=== PATIENT | female | born 1945 | race Caucasian/White ===

== ENCOUNTER 2018-06-09 10:24 | Emergency (ER) | payer MEDICARE, BC, OTHER ==
--- NOTE | 2018-06-09 10:27 | ED ---
Adult Trauma - HPI Summary HPI Summary: A 72 y/o female brought in by [facility] ambulance presents to [facility] with a chief complaint of a fall while walking at [place] earlier today. Per EMS, her memory was worse, but is now getting better and witnesses described her fall as more of a syncopal episode since she reportedly didn't trip on anything. She also c/ o headache, N/V, right eyelid laceration and periorbital ecchymosis and a nosebleed. At triage she rated her pain as a 9/10 in severity. In the ED she cannot remember what she did yesterday. She denies blurred vision, CP or SOB. SHx mastectomy. - History of Current Complaint Stated Complaint: FALL PER EMS Hx Obtained From: Patient, EMS Mechanism of Injury: Fall Loss of Consciousness: unsure Onset/Duration: Started Minutes Ago, Still Present - confusion Onset of Pain: Immediate, Post Accident, Prior to Arrival Onset Severity: Severe Current Severity: Severe Pain Intensity: 9 Pain Scale Used: 0-10 Numeric Location: Head Aggravating Factor(s): Nothing Alleviating Factor(s): Nothing Associated Signs & Symptoms: Positive: Nausea/Vomiting, Memory Loss. Negative: SOB, Chest Pain, Fever - Allergy/Home Medications Allergies/Adverse Reactions: Allergies Allergy/AdvReac Type Severity Reaction Status Date / Time MS No Known Drug Allergy Allergy Unknown See Comment Verified 01/05/16 12:57 [No Known Drug Allergy] ENVIRONMENTAL Allergy NASAL Uncoded 01/05/16 12:57 CONGESTION, BREATHING DIFFICULTY Home Medications: Home Medications Cholecalciferol CAP/TAB(NF) [Vitamin D3 CAP/TAB (NF)] 5,000 unit PO DAILY [History Confirmed 06/09/18] Diazepam TAB(*) [Valium TAB(*)] 5 mg PO DAILY PRN 06/09/18 [History Confirmed ] Ibuprofen [Motrin Ib] 200 mg PO BID PRN 06/09/18 [History Confirmed 06/09/18] Lactobacillus Acidophilus [Probiotic Acidophilus] 1 tab PO DAILY 06/09/18 [ History Confirmed 06/09/18] Levothyroxine TAB* [Synthroid TAB*] 88 mcg PO QAM 06/09/18 [History Confirmed ] Loperamide CAP* [Imodium CAP*] 2 mg PO DAILY PRN 06/09/18 [History Confirmed 02/15] Meclizine TAB* [Antivert 12.5 TAB*] 12.5 mg PO TID PRN 06/09/18 [History Confirmed 06/09/18] Ondansetron ODT TAB* [Zofran 4 MG Odt TAB*] 4 mg PO Q6H PRN 06/09/18 [History Confirmed 06/09/18] Vitamin B Complex CAP* [B Complex CAP*] 1 cap PO DAILY 06/09/18 [History Confirmed 06/09/18] Zolmitriptan (NF) [Zomeg (NF)] 5 mg SL .SEE INSTRUCTIONS PRN 06/09/18 [History Confirmed 06/09/18] diPHENhydraMINE PO* [Benadryl PO 25 MG TAB*] 25 mg PO DAILY PRN 06/09/18 [ History Confirmed 06/09/18] PMH/Surg Hx/FS Hx/Imm Hx Endocrine/Hematology History: Reports: Hx Thyroid Disease - HYPOTHYROID Denies: Hx Diabetes Cardiovascular History: Denies: Hx Hypertension, Hx Pacemaker/ICD, Other Cardiovascular Problems/ Disorders Respiratory History: Denies: Other Respiratory Problems/Disorders History: Denies: Hx Renal Disease Musculoskeletal History: Denies: Hx Osteoporosis, Other Musculoskeletal History Sensory History: Reports: Hx Contacts or Glasses - READING Denies: Hx Hearing Aid Opthamlomology History: Reports: Hx Contacts or Glasses - READING Neurological History: Reports: Hx Headaches - SEVERAL TIMES A MONTH- MOSTLY WEATHER RELATED, Hx Migraine - SEVERAL TIMES A MONTH-ROUTINE AND PRN MEDICATION FOR Denies: Other Neuro Impairments/Disorders Psychiatric History: Denies: Hx Panic Disorder - Cancer History Cancer Type, Location and Year: LEFT BREAST Hx Chemotherapy: No Hx Radiation Therapy: No - Surgical History Surgery Procedure, Year, and Place: [facility]ly [facility], [place], [facility] [place] [facility] [place]. LEFT BREAST MASTECTOMY 2013 Hx Anesthesia Reactions: No - Family History Known Family History: Negative: Blood Disorder - Social History Alcohol Use: Occasionally Substance Use Type: Reports: None Smoking Status (MU): Never Smoked Tobacco Review of Systems Negative: Fever Eyes: Other - laceration right eyelid, right periorbital ecchymosis Negative: Blurred Vision Positive: Epistaxis Negative: Chest Pain Negative: Shortness Of Breath Positive: Vomiting, Nausea Positive: Headache, Syncope - per witnesses All Other Systems Reviewed And Are Negative: Yes Physical Exam - Summary Physical Exam Summary: Constitutional: Well-developed, Well-nourished, Alert. (-) Distressed Skin: Warm, Dry HENT: Superficial laceration right upper eyelid, periorbital ecchymosis, tenderness right maxilla and right side of nose, forehead is normal, no septal hematoma, dry blood in right nare, mouth and lower face are normal Eyes: Conjunctiva normal bilaterally, EOMI. Neck: Musculoskeletal ROM normal neck. (-) JVD, (-) Stridor, (-) Tracheal deviation Cardio: Rhythm regular, rate normal, Heart sounds normal; Intact distal pulses; The pedal pulses are 2+ and symmetric. Radial pulses are 2+ and symmetric. (-) Murmur Pulmonary/Chest wall: Effort normal. (-) Respiratory distress, (-) Wheezes, (-) Rales Abd: Soft, (-) tenderness, (-) Distension, (-) Guarding, (-) Rebound Musculoskeletal: (-) Edema, No TTP c-spine or spine. Lymph: (-) Cervical adenopathy Neuro: Normal strenght sensation bilaterally, cranial nerves II-XII intact, alert and oriented to person, place and time but not to event. Psych: Mood and affect Normal GCS: 14 Triage Information Reviewed: Yes Vital Signs Reviewed: Yes Diagnostics - Laboratory Result Diagrams: 06/09/18 11:06 06/09/18 11:06 Lab Statement: Any lab studies that have been ordered have been reviewed, and results considered in the medical decision making process. - Radiology CXR Radiology Interpretation Completed By: Radiologist Summary of Radiographic Findings: NO ACTIVE CARDIOPULMONARY DISEASE. ED physician has reviewed this imaging report. - CT Maxillofacial CT Interpretation Completed By: Radiologist Summary of CT Findings: Infiltrative edema/hematoma along the RIGHT face from the level of the mandible. inferiorly through the malar eminence and preseptal orbital and superolateral orbital. margin superiorly. Negative for hematoma at the post septal RIGHT orbit. Mildly transverse impacted fractures involving the anterior, lateral, and posterior. aragon of the RIGHT maxillary sinus as well as the floor and lateral margin of the RIGHT. orbit. Negative for downward herniation of the RIGHT orbital contents. Segmental fracture. involving the medial margin of the RIGHT orbit with extension to the RIGHT nasal bones. with mild medial displacement. Nondisplaced fracture at the mid RIGHT zygomatic arch. ED physician has reviewed this imaging report. cervical spine CT Interpretation Completed By: Radiologist Summary of CT Findings: No CT evidence for traumatic cervical spine injury. ED physician has reviewed this imaging report. Brain CT Interpretation Completed By: Radiologist Summary of CT Findings: No CT evidence for traumatic brain injury or acute intracranial process. Mild involutional change. Refer to maxillofacial CT of the same date for description of facial fractures. including involvement of the aragon of the RIGHT maxillary sinus and RIGHT orbit. ED physician has reviewed this imaging report. - EKG 10:59 Cardiac Rate: NL - 74 bpm EKG Rhythm: Sinus Rhythm Summary of EKG Findings: Normal sinus rhythm at 74bpm, normal MI, normal QRS, normal QTc, normal axis, normal ST, normal T-waves, normal EKG. Re-Evaluation - Re-Evaluation First Eval Re-Evaluation Time: 11:52 Change: Unchanged Comment: Vision reassessed, EOMI, at first she reported no blurry vision but now her right eye vision is hazy, Pt still has headache and nausea. Adult Trauma Course/Dx - Course Course Of Treatment: A 72 y/o female brought in by [facility] ambulance presents to [facility] with a chief complaint of a fall while walking at [place] earlier today. Per EMS, her memory was worse, but is now getting better and witnesses described her fall as more of a syncopal episode since she reportedly didn't trip on anything. The physical exam revealed superficial laceration right upper eyelid, Periorbital ecchymosis and tenderness right maxilla and right side of nose, Forehead is normal, no septal hematoma, dry blood in right nare, Mouth and lower face normal, Eye conjunctiva normal bilaterally, EOMI, No TTP from neck down, no c-spine or spine tenderness, Normal strength and sensation bilaterally, Cranial nerves II-XII intact, Alert and oriented to person and place, time but not to event. GCS of 14.EKG at 10:59 showed Normal sinus rhythm at 74bpm, normal MI, normal QRS, normal QTc, normal axis, normal ST, normal T- waves, normal EKG. Maxillofacial CT impression: Infiltrative edema/hematoma along the RIGHT face from the level of the mandible. inferiorly through the malar eminence and preseptal orbital and superolateral orbital. margin superiorly. Negative for hematoma at the post septal RIGHT orbit. Mildly transverse impacted fractures involving the anterior, lateral, and posterior. aragon of the RIGHT maxillary sinus as well as the floor and lateral margin of the RIGHT. orbit. Negative for downward herniation of the RIGHT orbital contents. Segmental fracture. involving the medial margin of the RIGHT orbit with extension to the RIGHT nasal bones. with mild medial displacement. Nondisplaced fracture at the mid RIGHT zygomatic arch. CXR impression: NO ACTIVE CARDIOPULMONARY DISEASE. Cervical spine CT impression: No CT evidence for traumatic cervical spine injury. Brain CT impression: No CT evidence for traumatic brain injury or acute intracranial process. Mild involutional change. Refer to maxillofacial CT of the same date for description of facial fractures. including involvement of the aragon of the RIGHT maxillary sinus and RIGHT orbit. In the ED course the patient was given 4mg Zofran IV and sodium chloride IV. Bloodwork and chemistries obtained and are WNL. Upon re-eval the patient reported that she still had a headache and nausea along with new right eye vision haziness. The patient was given Reglan IV and Morphine IV. Discussed case with Dr. Wilkerson at [facility], who accepted the patient for transfer. - Diagnoses Provider Diagnoses: Syncope, Orbital fracture, Decreased visual acuity, Facial bones, open fracture During the Visit The Following Alert/Code Occurred: Trauma - Physician Notifications Instructed by Provider To: Transfer - transfer to [facility] for Ophthalmology eval. - Critical Care Time Critical Care Time: 30-74 min Discharge - Sign-Out/Discharge Documenting (check all that apply): Patient Departure - transfer Patient Received Moderate/Deep Sedation with Procedure: No - Discharge Plan Condition: Fair Disposition: TRANS HIGHER LVL OF CARE FAC Referrals: Erica Duran MD [Primary Care Provider] - - Billing Disposition and Condition Condition: FAIR Disposition: Trans Higher Lvl of Care Fac - Attestation Statements Document Initiated by Scribe: Yes Documenting Scribe: Ciro Toro Provider For Whom Gabriela is Documenting (Include Credential): Zoya Clevealnd MD Scribe Attestation: Ciro Salter scribed for Zoya Park MD on 06/09/18 at 1252. Scribe Documentation Reviewed: Yes Provider Attestation: The documentation as recorded by the scribe, Ciro DesRochers accurately reflects the service I personally performed and the decisions made by me, Zoya Park MD Status of Scribe Document: Viewed Consult Consult: At 12:21 - Discussed case with Dr. Wilkerson at [facility], who accepted the patient for transfer.
[2018-06-09] MEDS ORDERED: NS 0.9% 1000 ML** 1,000 ML IV ONE (10:29)
[2018-06-09] MEDS ORDERED: Ondansetron INJ* 2 MG/ML VIAL IV ONE (10:29)
[2018-06-09 11:03] VITALS: BP 151/87
[2018-06-09 11:16] LABS: ABS Basophils 0.1 10^3/ul (0-0.2); ABS Eosinophils 0.4 10^3/ul (0-0.6); ABS Lymphocytes 1.6 10^3/ul (1.0-4.8); ABS Monocytes 0.6 10^3/ul (0-0.8); ABS Neutrophils 9.3 10^3/ul (1.5-7.7); ABS Nucleated RBC 0 10^3/ul; Eosinophil % 3.4 %; Hematocrit 42 % (33-41); Hemoglobin 13.8 g/dL (12.0-16.0); Lymphocyte % 13.6 %; Mean Corpuscular HGB Conc 33 g/dL (31-36); Mean Corpuscular Hemoglobin 30 pg (27-31); Mean Corpuscular Volume 90 fL (80-97); Mean Platelet Volume 9.6 fL (7.4-10.4); Nucleated Red Blood Cells % 0; Platelet Count 259 10^3/uL (150-450); Red Blood Count 4.66 10^6 /uL (3.70-4.87); Red Cell Distribution Width 14 % (10.5-15); White Blood Count 12.1 10^3/uL (3.5-10.8)
[2018-06-09 11:28] LABS: INR 0.82 (0.77-1.02)
[2018-06-09 11:36] LABS: ALT 36 U/L (7-52); AST 34 U/L (13-39); Albumin/Globulin Ratio 1.3 (1-3); Alkaline Phosphatase 62 U/L (34-104); Amylase 46 U/L (29-103); Anion Gap 5 mmol/L (2-11); BUN/Creatinine Ratio 19.1 (8-20); Blood Urea Nitrogen 17 mg/dL (6-24); CO2 Carbon Dioxide 28 mmol/L (22-32); Calcium 9.3 mg/dL (8.6-10.3); Chloride 104 mmol/L (101-111); Creatine Kinase 76 U/L (10-223); EGFR African American 75.4 (>60); EGFR Non-African American 62.3 (>60); Globulin 3.1 g/dL (2-4); Glucose 111 mg/dL (70-100); Potassium 4.1 mmol/L (3.5-5.0); Sodium 137 mmol/L (135-145); Total Protein 7.1 g/dL (6.4-8.9)
[2018-06-09 11:37] LABS: Troponin I 0.01 ng/mL (<0.04)
[2018-06-09 11:41] LABS: Alcohol < 10 mg/dL (<10)
[2018-06-09] MEDS ORDERED: Metoclopramide IV* 5 MG/ML 2 ML VIAL IV ONE (11:57)
[2018-06-09] MEDS ORDERED: Morphine 4 MG/ML VIAL (1 ml) 4 MG/ML VIAL IV PRN (11:57)
[2018-06-09] MEDS ORDERED: Tetan/Diph/Pertus SYR(Tdap)* 0.5 ML SYR(BOOSTRIX) use SYR IM ONE (12:00)
[2018-06-09] MEDS ORDERED: ceFAZolin 1 GM ADVAN(*) 1 GM in NS 0.9% 50 ML* 50 ML IVPB ONE (12:01)
[2018-06-09] MEDS ORDERED: NS 0.9% 1000 ML** 1,000 ML IV SCH (13:00)
== END 2018-06-09 13:24 | disposition short-term general hospital (02) ==
LOC: ED 10:24
DX: S02.31XA Fracture of orbital floor, right side, initial encounter for closed fracture (principal); S02.40CA Maxillary fracture, right side, initial encounter for closed fracture; S02.40EA Zygomatic fracture, right side, initial encounter for closed fracture; S02.2XXB Fracture of nasal bones, initial encounter for open fracture; Y93.01 Activity, walking, marching and hiking; R94.31 Abnormal electrocardiogram [ECG] [EKG]; R55 Syncope and collapse; E03.9 Hypothyroidism, unspecified; Z79.890 Hormone replacement therapy
CPT/HCPCS: 36415; 70450; 70486; 71045; 72125; 80053; 80320; 82150; 82550; 83605; 83690; 84484; 85025; 85610; 86850; 86900; 86901; 90471; 90715; 93005; 96361; 96365; 96375; 99284; 99291; G0480; J0690; J2270; J2405; J2765

== ENCOUNTER 2018-11-08 07:57 | Day surgery (SDC) | payer MEDICARE, BC ==
[2018-11-08] MEDS ORDERED: Midazolam* 1 MG/ML 2 ML VIAL (2 MG) ONE ×2 (09:16→10:10)
--- NOTE | 2018-11-08 11:27 | OP ---
OPERATIVE NOTE: DATE OF OPERATION: 11/08/18 DATE OF : 45 SURGEON: Clive Cuba M.D. PREOPERATIVE DIAGNOSIS: Cataract, left eye. POSTOPERATIVE DIAGNOSIS: Cataract, left eye. OPERATIVE PROCEDURE: Extracapsular cataract extraction with IOL implant left eye. PROCEDURE: The patient was brought to the operating room after being given 1/2% Alcaine with epineph rine drops in the preoperative area. The eye was prepped and draped in the usual sterile fashion. S terile drape and eyelid speculum were placed. Again, topical 1/2% Alcaine with epinephrine was given . A paracentesis incision was made at the 3 o'clock position with the No.75 blade. Clear cornea inc ision 2.2 x 2.2-mm was created at the 6 o'clock position starting at the anterior limbus using the 2. 2-mm keratome. The anterior chamber was irrigated with 0.4 mL of 1% non-preservative intracameral li docaine and filled with DisCoVisc. A capsulorrhexis was completed using the cystotome and the Utrata forceps. Hydrodissection was performed with balanced salt solution. The lens nucleus was removed wi th the Phacoemulsification handpiece without incident. Cortex was removed with the irrigation-aspira tion handpiece. The capsular bag was re-inflated using DisCoVisc and an SN60WF 20.5 implant was inse rted with the shooter. The irrigation-aspiration handpiece was used to remove all residual DisCoVisc . The eye was refilled with balanced salt solution and the wound checked and found to be watertight. Topical Maxitrol drops were given. [id number]/[facility] #: [id number]
[2018-11-08 11:45] VITALS: BP 97/43
[2018-11-08] MEDS ORDERED: Proparacaine 0.5% OPHTH.SOL* 15 ML BTL ONE (12:20)
[2018-11-08] MEDS ORDERED: Lidocaine 2% w/ EPI 1:200,000* 20 ML SDV VIAL ONE (12:20)
[2018-11-08] MEDS ORDERED: Lidocaine 1% MPF ** 5 ML VIAL ONE (12:20)
[2018-11-08] MEDS ORDERED: Neomycin/Polymy/Dex OPTH.SUSP* MAXITROL 0.1% 5 ML ONE (12:20)
[2018-11-08] MEDS ORDERED: Povidone Iodine 5% OPTH* 30 ML BTL ONE (12:20)
[2018-11-08] MEDS ORDERED: Cyclopentolate 1% OPTH.SOL* 2 ML BTL ONE (12:20)
[2018-11-08] MEDS ORDERED: Ketorolac 0.5% OPHTH (NF) 0.5 % 5 ML BTL ONE (12:20)
[2018-11-08] MEDS ORDERED: acetaZOLAMIDE TAB* 250 MG ONE (12:20)
[2018-11-08] MEDS ORDERED: Phenylephrine OPHTH SOL 2.5%* 2 ML ONE (12:20)
== END 2018-11-08 10:42 | disposition home or self-care (01) ==
LOC: OREAST 07:57
PROVIDERS: ATTEND Specialist
DX: H25.812 Combined forms of age-related cataract, left eye (principal); I10 Essential (primary) hypertension; E03.9 Hypothyroidism, unspecified; M19.039 Primary osteoarthritis, unspecified wrist; G43.009 Migraine without aura, not intractable, without status migrainosus; H81.10 Benign paroxysmal vertigo, unspecified ear; Z85.3 Personal history of malignant neoplasm of breast
CPT/HCPCS: A9270-GY; J2250; V2632

== ENCOUNTER 2018-11-22 06:32 | Day surgery (SDC) | payer MEDICARE, BC ==
[~2018-11-22 06:32] MED LIST: Acetaminophen TAB* 325 MG PO PRN; Buffered Lidocaine 1% SYRIN* 1 ML/SYRINGE INTRADERM ONE
[2018-11-22] MEDS ORDERED: Midazolam* 1 MG/ML 5 ML VIAL (5 MG) ONE (07:14)
[2018-11-22] MEDS ORDERED: fentaNYL* 50 MCG/ML 2 ML VIAL (100 MCG VIAL) ONE (07:14)
--- NOTE | 2018-11-22 08:27 | OP ---
DATE OF OPERATION: 11/22/18 LOCATED WITHIN [facility] DATE OF : 45 SURGEON: Clive Cuba M.D. PREOPERATIVE DIAGNOSIS: Cataract, right eye. POSTOPERATIVE DIAGNOSIS: Cataract, right eye. OPERATIVE PROCEDURE: Extracapsular cataract extraction with intraocular lens, right eye. DESCRIPTION OFPROCEDURE: The patient was brought to the operating room after being given 1/2% Alcaine with epinephrine drops in the preoperative area. The eye was prepped and draped in the usual sterile fashion. Sterile drape and eyelid speculum were placed. Again, topical 1/2% Alcaine with epinephrine was given. A paracentesis incision was made at the 9 o'clock position with the No.75 blade. Clear cornea incision 2.2 x 2.2-mm was created at the 12 o'clock position starting at the anterior limbus using the 2.2-mm keratome. The anterior chamber was irrigated with 0.4 mL of 1% non-preservative intracameral lidocaine and filled with DisCoVisc. A capsulorrhexis was completed using the cystotome and the Utrata forceps. Hydrodissection was performed with balanced salt solution. The lens nucleus was removed with the Phacoemulsification handpiece without incident. Cortex was removed with the irrigation-aspiration handpiece. The capsular bag was re-inflated using DisCoVisc and an SN60WF 19.5 implant was inserted with the shooter. The irrigation-aspiration handpiece was used to remove all residual DisCoVisc. The eye was refilled with balanced salt solution and the wound checked and found to be watertight. Topical Maxitrol drops were given. [id number]/[facility] #: [id number] MTDD
[2018-11-22 08:33] VITALS: BP 110/50
[2018-11-22] MEDS ORDERED: Proparacaine 0.5% OPHTH.SOL* 15 ML BTL ONE (12:55)
[2018-11-22] MEDS ORDERED: Ketorolac 0.5% OPHTH (NF) 0.5 % 5 ML BTL ONE (12:55)
[2018-11-22] MEDS ORDERED: Povidone Iodine 5% OPTH* 30 ML BTL ONE (12:55)
[2018-11-22] MEDS ORDERED: Lidocaine 2% w/ EPI 1:200,000* 20 ML SDV VIAL ONE (12:55)
[2018-11-22] MEDS ORDERED: acetaZOLAMIDE TAB* 250 MG ONE (12:55)
[2018-11-22] MEDS ORDERED: Lidocaine 1% MPF ** 5 ML VIAL ONE (12:55)
[2018-11-22] MEDS ORDERED: Phenylephrine OPHTH SOL 2.5%* 2 ML ONE (12:55)
[2018-11-22] MEDS ORDERED: Neomycin/Polymy/Dex OPTH.SUSP* MAXITROL 0.1% 5 ML ONE (12:55)
[2018-11-22] MEDS ORDERED: Cyclopentolate 1% OPTH.SOL* 2 ML BTL ONE (12:55)
== END 2018-11-22 08:16 | disposition home or self-care (01) ==
LOC: OREAST 06:32
PROVIDERS: ATTEND Specialist
DX: H25.811 Combined forms of age-related cataract, right eye (principal); G43.909 Migraine, unspecified, not intractable, without status migrainosus; E03.9 Hypothyroidism, unspecified; Z96.1 Presence of intraocular lens; Z85.3 Personal history of malignant neoplasm of breast
CPT/HCPCS: A9270-GY; J2250; J3010; V2632